=== PATIENT | female | born 2000 | race Hispanic/Latino ===

== ENCOUNTER 2023-11-02 22:49 | Emergency (ER) | payer BC ==
[2023-11-03] MEDS ORDERED: Ibuprofen 800 MG TAB ONE (00:46)
[2023-11-03] MEDS ORDERED: diphenhydrAMINE 25 MG CAP ONE (00:47)
== END 2023-11-03 00:54 | disposition home or self-care (01) ==
LOC: ERS 22:49
DX: S90.861A Insect bite (nonvenomous), right foot, initial encounter (principal); W57.XXXA Bitten or stung by nonvenomous insect and other nonvenomous arthropods, initial encounter
CPT/HCPCS: 99283